=== PATIENT | male | born 1990 | race Caucasian/White ===

== ENCOUNTER → 2025-02-27 | Outpatient (CLI) | payer OTHER, SELFPAY ==
--- NOTE | 2025-02-27 14:07 | RAD_ITS ---
PROCEDURE: RIBS UNIL 2V NO CXR 02/27/2025 REASON FOR EXAM: RIB INJURY TECHNIQUE: Procedure Code: [id number] Modality: DX Procedure: Four view right rib series COMPARISON: None provided. RAD/Ribs Unil 2V No CXR IMPRESSION: Thoracic dextroscoliosis is seen. Spinal fixation device in place, without amari arent complication, upon limited imaging (also without prior comparison available). Limited imaging of the lungs shows no pneumothorax, pleural effusion, or other acute process. Probable mild right acromioclavicular joint degenerative changes noted. No fracture or dislocation is seen. If clinical concern persists, short-term follow-up imaging may be obtained to r ule out a currently occult fracture. Reading Location: [place] [id number]
== END | disposition home or self-care (01) ==
LOC: MTRAD 14:07
PROVIDERS: PCP Family Medicine; Referring Provider Physician Assistant Surgical; Visit Provider Physician Assistant Surgical
DX: S29.9XXA Unspecified injury of thorax, initial encounter (principal)
CPT/HCPCS: 71100